=== PATIENT | male | born 1950 | race Caucasian/White ===

== ENCOUNTER 2023-11-16 10:37 | Emergency (ER) | payer MEDICARE, MEDICAID ==
[~2023-11-16] VITALS: Ht 175.3 cm; Wt 80.0 kg
[2023-11-16 10:47] VITALS: TEMP 98.3
[2023-11-16] MEDS ORDERED: LOSA100T59 PO (10:53)
[2023-11-16] MEDS ORDERED: ATOR10TA69 PO (10:53)
[2023-11-16] MEDS: DICLOFENAC SODIUM 1% 100 GM GEL [4GM] TP ONE (12:18)
[2023-11-16 13:56] VITALS: BP 140/72; PULSE 73; RESP 16
== END 2023-11-16 14:04 | disposition home or self-care (01) ==
LOC: EMS 10:37
DX: M25.561 Pain in right knee (principal); E78.00 Pure hypercholesterolemia, unspecified; I10 Essential (primary) hypertension; Z96.649 Presence of unspecified artificial hip joint
CPT/HCPCS: 99283